=== PATIENT | female | born 1950 | race Caucasian/White ===

== ENCOUNTER → 2016-08-04 | Outpatient (CLI) | payer BC ==
--- NOTE | 2016-08-05 09:45 | MM ---
Reason for exam: screening (asymptomatic). Last mammogram was performed 1 year ago. History: Patient is postmenopausal. Benign excisional biopsy of the left breast. Took estrogen for 3 years 4 months. Took progesterone for 3 years 4 months. Physical Findings: A clinical breast exam by your physician is recommended on an annual basis and results should be correlated with mammographic findings. MG Screening Mammo w CAD Bilateral CC and MLO view(s) were taken. Prior study comparison: July 30, 2015, bilateral MG screening mammo w CAD. July 23, 2014, bilateral MG screening mammo w CAD. The breast tissue is almost entirely fat. No significant changes when compared with prior studies. ASSESSMENT: Benign, BI-RAD 2 RECOMMENDATION: Routine screening mammogram of both breasts in 1 year.
== END | disposition home or self-care (01) ==
LOC: RADMAMWWP 13:01
PROVIDERS: ATTEND Obstetrics & Gynecology
DX: Z12.31 Encounter for screening mammogram for malignant neoplasm of breast (principal)

== ENCOUNTER → 2017-08-11 | Outpatient (CLI) | payer MEDICARE, BC ==
--- NOTE | 2017-08-12 13:28 | MM ---
Reason for exam: screening (asymptomatic). Last mammogram was performed 1 year ago. History: Patient is postmenopausal. Benign excisional biopsy of the left breast. Took estrogen for 3 years 4 months. Took progesterone for 3 years 4 months. Physical Findings: A clinical breast exam by your physician is recommended on an annual basis and results should be correlated with mammographic findings. MG 3D Screening Mammo W/Cad Bilateral CC and MLO view(s) were taken. Prior study comparison: August 04, 2016, bilateral MG screening mammo w CAD. July 30, 2015, bilateral MG screening mammo w CAD. The breast tissue is heterogeneously dense. This may lower the sensitivity of mammography. There is chronic nodularity bilaterally. No suspicious abnormality. Post biopsy change on the left breast. No significant changes when compared with prior studies. ASSESSMENT: Benign, BI-RAD 2 RECOMMENDATION: Routine screening mammogram of both breasts in 1 year.
== END | disposition home or self-care (01) ==
LOC: RADMAMWWP 16:41
PROVIDERS: ATTEND Obstetrics & Gynecology
DX: Z12.31 Encounter for screening mammogram for malignant neoplasm of breast (principal)
CPT/HCPCS: 77063; 77067

== ENCOUNTER → 2018-08-25 | Outpatient (CLI) | payer MEDICARE, BC ==
--- NOTE | 2018-08-26 12:07 | MM ---
Reason for exam: screening (asymptomatic). Last mammogram was performed 1 year ago. History: Patient is postmenopausal. Benign excisional biopsy of the left breast. Took estrogen for 3 years 4 months. Took progesterone for 3 years 4 months. Physical Findings: A clinical breast exam by your physician is recommended on an annual basis and results should be correlated with mammographic findings. MG 3D Screening Mammo W/Cad Bilateral CC and MLO view(s) were taken. Prior study comparison: August 11, 2017, bilateral MG 3d screening mammo w/cad. August 04, 2016, bilateral MG screening mammo w CAD. The breast tissue is heterogeneously dense. This may lower the sensitivity of mammography. Benign appearing bilateral calcifications. No suspicious abnormality. No significant changes when compared with prior studies. ASSESSMENT: Benign, BI-RAD 2 RECOMMENDATION: Routine screening mammogram of both breasts in 1 year.
== END | disposition home or self-care (01) ==
LOC: RADMAMWWP 07:29
PROVIDERS: ATTEND Obstetrics & Gynecology
DX: Z12.31 Encounter for screening mammogram for malignant neoplasm of breast (principal)
CPT/HCPCS: 77063; 77067

== ENCOUNTER 2019-04-28 19:17 | Observation (INO) | payer MEDICARE, BC ==
[2019-04-28] MEDS ORDERED: SODIUM CHLORIDE 0.9% 1,000 ML IV STA (19:45)
[2019-04-28] MEDS ORDERED: ASPIRIN 81 MG PO STA (19:45)
--- NOTE | 2019-04-28 19:52 | ED ---
General Adult HPI - General Chief complaint: Recheck/Abnormal Lab/Rx Stated complaint: High Blood Pressure Time Seen by Provider: 04/28/19 19:31 Source: patient, RN notes reviewed Mode of arrival: ambulatory Limitations: no limitations - History of Present Illness Initial comments: This is a 69-year-old female history type 2 diabetes and hypertension states her blood pressure is been somewhat labile over last 5 days with his high as 180s over 84 down to 140 150/70 she states also she's been having intermittent episodes of retrosternal chest pain low grade she states maybe 1 or 2/10 severity she's been having intermittent episodes of this. Is nonradiating no fevers chills nausea vomiting sweats shortness of breath no exertional dyspnea with it. No prior history of heart disease she is a nonsmoker. No family history of heart disease she states. She does state that she fell the last week or 2 and had a bruise on her left anterior shay she wasn't sure if that had anything do with it. - Related Data Allergies Allergy/AdvReac Type Severity Reaction Status Date / Time amoxicillin [From Augmentin] Allergy Unknown Verified 04/28/19 19:26 clavulanic acid Allergy Unknown Verified 04/28/19 19:26 [From Augmentin] erythromycin base Allergy Unknown Verified 04/28/19 19:26 fexofenadine [From Gerri] Allergy Unknown Verified 04/28/19 19:26 oxaprozin [From Daypro] Allergy Unknown Verified 04/28/19 19:26 Childhood Review of Systems ROS Statement: Those systems with pertinent positive or pertinent negative responses have been documented in the HPI. ROS Other: All systems not noted in ROS Statement are negative. Past Medical History Past Medical History: Diabetes Mellitus, Hypertension History of Any Multi-Drug Resistant Organisms: None Reported Past Surgical History: Appendectomy, Hysterectomy Additional Past Surgical History / Comment(s): splenectomy Past Psychological History: No Psychological Hx Reported Smoking Status: Never smoker Past Alcohol Use History: Occasional Past Drug Use History: None Reported General Exam - General Exam Comments Initial Comments: This is a well-developed well-nourished awake alert oriented 3 female Limitations: no limitations General appearance: alert, anxious Head exam: Present: atraumatic, normocephalic, normal inspection Eye exam: Present: normal appearance, PERRL, EOMI. Absent: scleral icterus, conjunctival injection, periorbital swelling ENT exam: Present: normal exam, mucous membranes moist Neck exam: Present: normal inspection, full ROM, other (No stridor JVD or bruits). Absent: tenderness, meningismus, lymphadenopathy Respiratory exam: Present: normal lung sounds bilaterally. Absent: respiratory distress, wheezes, rales, rhonchi, stridor, chest wall tenderness Cardiovascular Exam: Present: regular rate, normal rhythm, normal heart sounds. Absent: systolic murmur, diastolic murmur, rubs, gallop, clicks GI/Abdominal exam: Present: soft, normal bowel sounds. Absent: distended, tenderness, guarding, rebound, rigid Extremities exam: Present: normal inspection, full ROM, normal capillary refill. Absent: tenderness, pedal edema, joint swelling, calf tenderness Back exam: Present: normal inspection Neurological exam: Present: alert, oriented X3, CN II-XII intact Psychiatric exam: Present: normal affect, normal mood Skin exam: Present: warm, dry, intact, normal color. Absent: rash Course Vital Signs 04/28/19 04/28/19 04/28/19 19:20 19:35 19:42 Temperature 97.9 F 97.8 F Pulse Rate 91 90 Pulse Rate [ 90 Outside Cutter ] Respiratory 16 16 Rate Blood Pressure 203/92 195/97 O2 Sat by Pulse 97 97 Oximetry 04/28/19 04/28/19 04/28/19 19:43 20:24 21:00 Temperature Pulse Rate 81 80 Pulse Rate [ Outside Cutter ] Respiratory 19 18 17 Rate Blood Pressure 176/89 168/85 O2 Sat by Pulse 98 97 Oximetry - Reevaluation(s) Reevaluation #1: 04/28/19 21:29 Patient states she's been having intermittent episodes of retrosternal chest pain again. EKG Findings - EKG Results: EKG: interpreted by ERMD, sinus rhythm (Sinus rhythm of 85. Interval 180 QRS duration 94 QT since QTC 34/456 possible left atrial enlargement nonspecific anterior changes) Medical Decision Making - Medical Decision Making I did discuss Pfizer the patient and her . Patient does have a recurrent chest pain for the initial workup appears be within normal limits. The concern is for angina patient is diabetic. Patient is 69 years old. Patient has agreed to stay for evaluation. Patient be admitted the case is discussed with Dr. Storey. Dr. Guy will be consulted. - Lab Data Result diagrams: 04/28/19 19:52 04/28/19 19:52 Lab Results 04/28/19 04/28/19 04/28/19 Range/Units 19:52 19:52 19:52 WBC 12.7 H (3.8-10.6) k/uL RBC 5.43 H (3.80-5.40) m/uL Hgb 15.3 (11.4-16.0) gm/dL Hct 47.0 H (34.0-46.0) % MCV 86.4 (80.0-100.0) fL MCH 28.1 (25.0-35.0) pg MCHC 32.5 (31.0-37.0) g/dL RDW 13.4 (11.5-15.5) % Plt Count 458 H (150-450) k/uL Neutrophils % 64 % Lymphocytes % 24 % Monocytes % 6 % Eosinophils % 1 % Basophils % 2 % Neutrophils # 8.1 H (1.3-7.7) k/uL Lymphocytes # 3.1 (1.0-4.8) k/uL Monocytes # 0.7 (0-1.0) k/uL Eosinophils # 0.1 (0-0.7) k/uL Basophils # 0.3 H (0-0.2) k/uL PT 9.6 (9.0-12.0) sec INR 0.9 (<1.2) APTT 22.9 (22.0-30.0) sec D-Dimer 0.36 (<0.60) mg/L FEU Sodium 138 (137-145) mmol/L Potassium 4.2 (3.5-5.1) mmol/L Chloride 102 (98-107) mmol/L Carbon Dioxide 29 (22-30) mmol/L Anion Gap 7 mmol/L BUN 16 (7-17) mg/dL Creatinine 0.66 (0.52-1.04) mg/dL Est GFR (CKD-EPI)AfAm >90 (>60 ml/min/1.73 sqM) Est GFR (CKD-EPI)NonAf >90 (>60 ml/min/1.73 sqM) Glucose 119 H (74-99) mg/dL Calcium 10.2 (8.4-10.2) mg/dL Magnesium 2.2 (1.6-2.3) mg/dL Total Bilirubin 0.6 (0.2-1.3) mg/dL AST 19 (14-36) U/L ALT 13 (4-34) U/L Alkaline Phosphatase 106 (38-126) U/L Creatine Kinase 48 (30-135) U/L Troponin I (0.000-0.034) ng/mL Total Protein 7.5 (6.3-8.2) g/dL Albumin 4.4 (3.5-5.0) g/dL Lipase 104 (23-300) U/L 04/28/19 Range/Units 19:52 WBC (3.8-10.6) k/uL RBC (3.80-5.40) m/uL Hgb (11.4-16.0) gm/dL Hct (34.0-46.0) % MCV (80.0-100.0) fL MCH (25.0-35.0) pg MCHC (31.0-37.0) g/dL RDW (11.5-15.5) % Plt Count (150-450) k/uL Neutrophils % % Lymphocytes % % Monocytes % % Eosinophils % % Basophils % % Neutrophils # (1.3-7.7) k/uL Lymphocytes # (1.0-4.8) k/uL Monocytes # (0-1.0) k/uL Eosinophils # (0-0.7) k/uL Basophils # (0-0.2) k/uL PT (9.0-12.0) sec INR (<1.2) APTT (22.0-30.0) sec D-Dimer (<0.60) mg/L FEU Sodium (137-145) mmol/L Potassium (3.5-5.1) mmol/L Chloride (98-107) mmol/L Carbon Dioxide (22-30) mmol/L Anion Gap mmol/L BUN (7-17) mg/dL Creatinine (0.52-1.04) mg/dL Est GFR (CKD-EPI)AfAm (>60 ml/min/1.73 sqM) Est GFR (CKD-EPI)NonAf (>60 ml/min/1.73 sqM) Glucose (74-99) mg/dL Calcium (8.4-10.2) mg/dL Magnesium (1.6-2.3) mg/dL Total Bilirubin (0.2-1.3) mg/dL AST (14-36) U/L ALT (4-34) U/L Alkaline Phosphatase (38-126) U/L Creatine Kinase (30-135) U/L Troponin I <0.012 (0.000-0.034) ng/mL Total Protein (6.3-8.2) g/dL Albumin (3.5-5.0) g/dL Lipase (23-300) U/L - Radiology Data Radiology results: report reviewed (I did review the imaging and report no acute findings.), image reviewed Disposition Clinical Impression: Chest pain, Unstable angina, Labile hypertension Disposition: ADMITTED IP TO THIS [facility] Condition: Fair Referrals: Bo Mast MD [Primary Care Provider] - 1-2 days
[2019-04-28 20:17] LABS: Basophils # (A) 0.3 k/uL (0-0.2); Basophils % (A) 2 %; Eosinophils # (A) 0.1 k/uL (0-0.7); Eosinophils % (A) 1 %; HGB 15.3 gm/dL (11.4-16.0); Lymphocytes # (A) 3.1 k/uL (1.0-4.8); Lymphocytes % (A) 24 %; MCH 28.1 pg (25.0-35.0); MCHC 32.5 g/dL (31.0-37.0); MCV 86.4 fL (80.0-100.0); Mean Platelet Volume 7.4; Monocytes # (A) 0.7 k/uL (0-1.0); Monocytes % (A) 6 %; Neutrophils # (A) 8.1 k/uL (1.3-7.7); Neutrophils % (A) 64 %; Platelet Count 458 k/uL (150-450); RBC 5.43 m/uL (3.80-5.40); RDW 13.4 % (11.5-15.5); WBC 12.7 k/uL (3.8-10.6)
[2019-04-28 20:27] LABS: ALT 13 U/L (4-34); AST 19 U/L (14-36); African American GFR (CKD) >90 (>60 ml/min/1.73 sqM); Albumin 4.4 g/dL (3.5-5.0); Alkaline Phosphatase 106 U/L (38-126); Anion Gap 7 mmol/L; Blood Urea Nitrogen 16 mg/dL (7-17); Calcium 10.2 mg/dL (8.4-10.2); Carbon Dioxide 29 mmol/L (22-30); Chloride 102 mmol/L (98-107); Creatine Kinase 48 U/L (30-135); Glucose 119 mg/dL (74-99); Magnesium 2.2 mg/dL (1.6-2.3); Non-African American GFR(CKD) >90 (>60 ml/min/1.73 sqM); Potassium 4.2 mmol/L (3.5-5.1); Sodium 138 mmol/L (137-145); Total Bilirubin 0.6 mg/dL (0.2-1.3); Total Protein 7.5 g/dL (6.3-8.2)
[2019-04-28 20:29] LABS: D-Dimer 0.36 mg/L FEU (<0.60); INR 0.9 (<1.2); Partial Thromboplastin Time 22.9 sec (22.0-30.0); Prothrombin Time 9.6 sec (9.0-12.0)
--- NOTE | 2019-04-28 20:36 | XR ---
EXAMINATION TYPE: XR chest 2V DATE OF EXAM: 04/28/2019 COMPARISON: NONE HISTORY: High blood pressure TECHNIQUE: 2 views FINDINGS: Heart and mediastinum are normal. Lungs are clear. Diaphragm is normal. Bony thorax is inta ct IMPRESSION: Normal chest.
[2019-04-28] MEDS ORDERED: NITROGLYCERIN SL TABS 0.4 MG TAB SUBLINGUAL PRN (21:31)
[2019-04-28] MEDS ORDERED: HEPARIN SODIUM,PORCINE 5,000 UNIT/ML 1 ML VIAL IV ONE (21:31)
[2019-04-28] MEDS ORDERED: SODIUM CHLORIDE 0.9% 1,000 ML IV SCH (21:45)
[2019-04-28] MEDS ORDERED: HEPARIN SOD,PORK IN 0.45% NACL 25,000 UNIT in 0.45% NACL 1 250ML.BAG IV SCH (21:45)
[2019-04-28] MEDS: BRIMONIDINE TARTRATE 0.2% DROPS 5 ML BTL BOTH EYES SCH (22:55)
[2019-04-28] MEDS: NITROGLYCERIN OINT 1 INCH/GM PACKET TOPICAL SCH (23:25)
[2019-04-29 05:53] LABS: Cholesterol 218 mg/dL (<200); HDL Cholesterol 41 mg/dL (40-60); LDL Cholesterol,Calculated 146 mg/dL (0-99); Triglycerides 157 mg/dL (<150)
[2019-04-29] MEDS ORDERED: HEPARIN SODIUM,PORCINE 5,000 UNIT/ML 1 ML VIAL IV STA (05:59)
[2019-04-29] MEDS: NITROGLYCERIN OINT 1 INCH/GM PACKET TOPICAL SCH ×3 (06:16→13:35)
[2019-04-29] MEDS: HEPARIN SODIUM,PORCINE 5,000 UNIT/ML 1 ML VIAL SQ SCH ×2 (08:01→20:37)
[2019-04-29] MEDS: INSULIN ASPART (NovoLOG) 100 UNIT/ML VIAL SQ SCH ×4 (08:01→21:03)
[2019-04-29] MEDS: GLIMEPIRIDE 2 MG TAB PO SCH (08:01)
[2019-04-29] MEDS: metFORMIN 500 MG TAB PO SCH ×2 (08:01→21:04)
[2019-04-29] MEDS ORDERED: NITROGLYCERIN SL TABS 0.4 MG TAB SUBLINGUAL PRN (08:03)
[2019-04-29] MEDS ORDERED: SODIUM CHLORIDE 0.9% 1,000 ML in EMPTY BAG 1 BAG IV ONE (08:03)
[2019-04-29] MEDS ORDERED: ASPIRIN 325 MG TAB PO STA (08:03)
[2019-04-29] MEDS ORDERED: ALPRAZolam 0.5 MG TAB PO PRN (08:03)
[2019-04-29] MEDS ORDERED: ALPRAZolam 0.25 MG TAB PO PRN (08:03)
[2019-04-29] MEDS ORDERED: ATORVASTATIN 80 MG TAB PO STA (08:03)
--- NOTE | 2019-04-29 08:09 | CONS ---
CONSULTATION Kathe Chakraborty is a 69-year-old lady who has retired and used to work on some small [employer] type activity but she is a retired person, went for a vacation to [place] recently and came back and after she came back, she was a little bit under stress and she felt that her blood pressure was elevated over 160-170 or so. She felt concerned and she started experiencing a pressure across the chest which she describes as an uncomfortable feeling that just would not go away. This was associated with some diaphoresis on one occasion but no nausea or palpitations or shortness of breath. She felt this on and off and came into the hospital. Her troponins are normal. EKG is unremarkable. She is resting comfortably without symptoms at the time of my evaluation. The patient is not a smoker. She is a reasonably active person. PAST MEDICAL HISTORY: 1. Type 2 diabetes. 2. Hypertension. 3. No documented evidence of hyperlipidemia, has not been on statins. She has not had any stress test. PAST SURGICAL HISTORY: She is status post appendectomy and hysterectomy. She also had some splenectomy performed and a partial pancreas taken out because of a spot and this was done at [facility]. Details are unclear. ALLERGIES: She is allergic to DAYPRO, PENICILLIN, ERYTHROMYCIN, and FRIDA. MEDICATIONS: At home include, glimepiride 2 mg before meals. She also takes metformin 750 mg b.i.d., losartan/HCTZ 100/25 one tablet daily. PHYSICAL EXAMINATION: On examination, blood pressure is 140/70, pulse rate is 72 per minute regular. HEENT: Unremarkable. Fundus was not examined by me. NECK: Supple. There is no JVD. I do not hear a carotid bruit. HEART: Reveals S1, S2 heard normally. No radius. No rub, murmur or gallop. LUNGS: Clear. ABDOMEN: Soft, nontender. LOWER EXTREMITIES: Reveal normal pulses. No edema. CENTRAL NERVOUS SYSTEM: Normal. EKG reveals sinus mechanism. No acute changes. IMPRESSION: 1. Chest pain syndrome in a patient with significant risk factor, cannot exclude unstable angina. 2. Hypertension. 3. Hyperlipidemia, not treated. 4. Type 2 diabetes mellitus. RECOMMENDATIONS: I am recommending that we discontinue IV heparin, put her on subcu heparin. The patient is a Bahai, does not wish to take any blood products. Given her symptoms of uncomfortable feeling in the chest with diaphoresis, I am recommending coronary angiography that will be performed later on today. I will initiate her on a beta neftali, aspirin, and Lipitor and proceed with cardiac cath. Risks, benefits, alternatives, options, rationale were explained. The patient understands all details and wishes to proceed with the procedure. Thank you very much for the consult. GUSTAVOL / IJN: [id number] /
[2019-04-29] MEDS: LOSARTAN-HCTZ 50-12.5 MG 1 EACH TAB PO SCH (08:11)
[2019-04-29] MEDS: METOPROLOL TARTRATE 25 MG TAB PO SCH ×2 (08:11→20:37)
[2019-04-29] MEDS ORDERED: ASPIRIN 81 MG PO SCH (09:00)
[2019-04-29] MEDS ORDERED: ATORVASTATIN 20 MG TAB PO SCH (09:00)
[2019-04-29] MEDS ORDERED: ASPIRIN 325 MG TAB PO SCH (09:00)
[2019-04-29 10:10] LABS: Glucose,Whole Blood 141 mg/dL (75-99)
[2019-04-29] MEDS ORDERED: IV FLUID CONTINUATION 1,000 ML IV ONE (12:10)
[2019-04-29] MEDS ORDERED: VERAPAMIL 2.5 MG/ML 2 ML AMP ONE (12:15)
[2019-04-29] MEDS ORDERED: HEPARIN SODIUM 1,000 UN/ML (10ML VL) ONE (12:15)
[2019-04-29] MEDS ORDERED: LIDOCAINE 1% INJ 10MG/ML (20 ML MDV) ONE (12:16)
[2019-04-29] MEDS: MIDAZOLAM 2 MG/2 ML VIAL IVP ONE ×2 (13:00→13:07)
[2019-04-29] MEDS ORDERED: NITROGLYCERIN SL TABS 0.4 MG TAB SUBLINGUAL ONE ×3 (13:04→13:07)
[2019-04-29] MEDS ORDERED: LIDOCAINE 1%-EPI 1:100,000 20 ML VIAL SQ ONE ×2 (13:05→13:06)
[2019-04-29] MEDS ORDERED: VERAPAMIL SYRINGE (5 MG/10 ML) INTRAARTER ONE (13:06)
[2019-04-29] MEDS: VERAPAMIL SYRINGE (5 MG/10 ML) INTRAARTER ONE ×2 (13:08→13:26)
[2019-04-29] MEDS ORDERED: HEPARIN SODIUM 1,000 UN/ML (10ML VL) IV ONE (13:09)
[2019-04-29] MEDS ORDERED: IOPAMIDOL-370 100ML BTL INJ ONE (13:26)
--- NOTE | 2019-04-29 14:48 | ECHOF ---
Referral Reason:chest pain MEASUREMENTS -------- HEIGHT: 162.6 cm WEIGHT: 103.0 kg BP: RVIDd: 2.8 cm (< 3.3) IVSd: 1.2 cm (0.6 - 1.1) LVIDd: 4.5 cm (3.9 - 5.3) LVPWd: 1.0 cm (0.6 - 1.1) IVSs: 1.6 cm LVIDs: 2.9 cm LVPWs: 1.3 cm LA Diam: 3.4 cm (2.7 - 3.8) LAESV Index (A-L): 21.55 ml/m Ao Diam: 2.6 cm (2.0 - 3.7) AV Cusp: 1.5 cm (1.5 - 2.6) LA Diam: 4.3 cm (2.7 - 3.8) MV EXCURSION: 20.130 mm (> 18.000) MV EF SLOPE: 68 mm/s (70 - 150) EPSS: 0.4 cm MV E Antione: 0.81 m/s MV DecT: 211 ms MV A Antione: 0.86 m/s MV E/A Ratio: 0.94 RAP: 5.00 mmHg RVSP: 14.81 mmHg FINDINGS -------- Sinus rhythm. This was a technically adequate study. The left ventricular size is normal. There is mild concentric left ventricular hypertrophy. Overa ll left ventricular systolic function is normal with, an EF between 55 - 60 %. The diastolic fillin g pattern is normal for the age of the patient 11.04. The right ventricle is normal in size. The left atrial size is normal. The right atrial size is normal. There is mild aortic valve sclerosis. There is no evidence of aortic regurgitation. Mild mitral annular calcification present. Mild mitral regurgitation is present. Mild tricuspid regurgitation present. Right ventricular systolic pressure is normal at < 35 mmHg. There is no evidence of pulmonary hypertension. There is no pulmonic regurgitation present. The aortic root size is normal. Echo free space represents a pericardial fat pad. CONCLUSIONS -------- 1. Sinus rhythm. 2. This was a technically adequate study. 3. The left ventricular size is normal. 4. There is mild concentric left ventricular hypertrophy. 5. Overall left ventricular systolic function is normal with, an EF between 55 - 60 %. 6. The diastolic filling pattern is normal for the age of the patient 11.04 7. The right ventricle is normal in size. 8. The left atrial size is normal. 9. The right atrial size is normal. 10. There is mild aortic valve sclerosis. 11. Mild mitral annular calcification present. 12. Mild mitral regurgitation is present. 13. Mild tricuspid regurgitation present. 14. Right ventricular systolic pressure is normal at < 35 mmHg. 15. There is no evidence of pulmonary hypertension. 16. There is no pulmonic regurgitation present. 17. The aortic root size is normal. 18. Echo free space represents a pericardial fat pad. BATTER MIXER: Andreea Fajardo RDCS
[2019-04-29 16:34] LABS: Glucose,Whole Blood 159 mg/dL (75-99)
[2019-04-29 19:47] LABS: Glucose,Whole Blood 102 mg/dL (75-99)
[2019-04-29] MEDS: BRIMONIDINE TARTRATE 0.2% DROPS 5 ML BTL BOTH EYES SCH (20:37)
--- NOTE | 2019-04-29 22:37 | HP ---
HISTORY AND PHYSICAL CHIEF COMPLAINT: Chest pain. HISTORY OF PRESENT ILLNESS: This is the first known admission for this 69-year-old white female who has a history of hypertension. She has been having some vague anterior chest discomfort for the last few days. She has had no other related symptoms such as shortness of breath, sweatiness, nausea, radiation of the pain, etc. She does have a history of diabetes mellitus and hypertension. She also has elevated cholesterol and she has glaucoma. Enzymes and EKG are unremarkable. She has been seen by Cardiology and because of her diabetes and history of hypertension, she is going for cardiac cath. REVIEW OF SYSTEMS: She has had no CVAs, neurologic deficits, change in vision or hearing, chest pain, cough, hemoptysis, sputum production, murmurs, rheumatic fever, orthopnea, PND, abdominal pain, indigestion, nausea, vomiting, hematemesis, melena, hematochezia, colitis, diverticulosis, diverticulitis, hemorrhoids, jaundice, hepatitis, cirrhosis, hematuria, frequency, urgency, renal failure, incontinence, etc. Past medical history, family history and personal and social histories reveal that she is on metformin, glipizide, losartan, and drops for her glaucoma. She is ALLERGIC TO MACROLIDES, FRIDA, PENICILLIN AND DAYPRO. Surgically she has had an appendectomy and a hysterectomy and removal of the tail of her pancreas and spleen. She does not know her status with regard to Pneumovax. She does not smoke and she does not drink. PHYSICAL EXAMINATION: Blood pressure is 168/92 with a pulse of 83, respirations of 19, and she is afebrile. In general, she appeared to be slightly overweight and in no acute distress. Lymph nodes not enlarged. Head, ears, eyes, nose, mouth, and throat were normal. Neck veins not distended. Thyroid is not enlarged. Chest is clear. Cardiac exam is normal. Abdomen is soft and nontender. Extremities are normal. Neurologically she is intact. IMPRESSION: She is admitted to the hospital with diagnoses: 1. Atypical chest pain. 2. Hypertension. 3. Type 2 NIDDM. 4. Status post splenectomy. PLAN: 1. Bed rest. 2. IV fluids. 3. Serial EKGs and enzymes. 4. Cardiology consult and she is going for a cardiac cath. MMODL / IJN: [id number] /
[2019-04-29 23:26] VITALS: TEMP 98
--- NOTE | 2019-04-29 23:55 | CC ---
CARDIAC CATHETERIZATION REPORT DATE OF SERVICE: 04/29/2019 PROCEDURE: Left heart catheterization and coronary angiography. PERFORMED BY: Dr. Steve Guy. SEDATION: Moderate conscious sedation time was 22 minutes. PROCEDURE PERFORMED: Left heart catheterization and coronary angiography. CLINICAL INFORMATION: Mrs. Kathe Chakraborty is a lady with type 2 diabetes mellitus, who came into the hospital with chest discomfort, continued to have persistent discomfort, nondescript. Troponin was not elevated. She has hypertension also and hyperlipidemia but is not on a statin agent. In view of her symptomatology and risk factors, after due discussion, I recommended coronary angiography, explained to her the rationale, risks, benefits, and options. PROCEDURE NOTE: Under local anesthesia and strict aseptic precautions, a 6-Senegalese introducer was placed in the right radial artery. I used a JL3.5 and JR4.0 catheter to perform coronary angiography and I also used a pigtail catheter to check LV pressures. LV gram was not performed. 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 CARDIAC CATHETERIZATION FINDINGS: The left ventricular end-diastolic pressure was about 5 mmHg without any gradient across aortic valve. CORONARY ANGIOGRAPHY FINDINGS: RIGHT CORONARY ARTERY: Right coronary artery is a very dominant vessel. The ostium and proximal portion have about a 40% narrowing. There is mild damping when I engage the catheter but on manipulating the catheter, the damping resolved. There is about a 35% to 40% ostial disease after which the caliber improves. Moderate calcification distally bifurcates into a large PDA and small PLV. No other areas of significant disease. The dominant RCA therefore has an ostial 40% lesion. Multiple angiograms were obtained in various projections to identify this. No other significant disease noted. Moderate calcification noted. LEFT MAIN CORONARY ARTERY: Short patent disease-free vessel that bifurcates into LAD and circumflex. LEFT ANTERIOR DESCENDING CORONARY ARTERY: Good caliber vessel, extends along the anterior wall and gives off smaller septal and diagonal branches. In the midportion, it gives off a good-sized diagonal branch that has a disease of about 40% in the midportion, fair caliber and distribution, divides into 3 branches distally. The diagonal at its origin has mild irregularities. Midportion 50% lesion, divides into 3 branches. LEFT ANTERIOR DESCENDING CORONARY ARTERY: LAD that continues after the diagonal has a 40% to 45% narrowing and then the caliber improves. The vessel runs all the way towards the apex, curves over the apex to supply the inferoapical portion of left ventricle as well. LAD therefore has a 45% mid lesion. Diagonal has a 50% lesion after the origin and there is mild to moderate calcification in the LAD system. LEFT POSTERIOR CIRCUMFLEX CORONARY ARTERY: Good caliber vessel, nondominant, gives off a single large obtuse marginal that runs laterally, has minor irregularities. No significant disease. Left ventriculogram was not performed. Following the procedure, a TR band was applied and the saturation of the right hand fingers was about 95%. Patient tolerated procedure well without complications. Results were discussed with the patient and family. Continued medical therapy with risk factor modification was advised. IMPRESSION: 1. Normal filling pressures. If any low filling pressures, no gradient across aortic valve. Right dominant system, 40% RCA ostial disease, 40% to 45% mid LAD disease, 50% disease in the midportion of a major diagonal branch. Circumflex is free of significant disease. RECOMMENDATIONS: I am recommending continued medical therapy with risk factor modification and I will start her on beta blockers and statins. Continue the losartan and her diabetic medications. She can be discharged tomorrow if she remains stable. Findings and recommendations discussed with the patient and family. MMODL / IJN: [id number] /
--- NOTE | 2019-04-30 01:04 | PN ---
PROGRESS NOTE CHIEF COMPLAINT: Chest pain and hypertension. HISTORY OF PRESENT ILLNESS: This lady is doing well and she has not had any further chest pain. Blood pressure has been fluctuating, however, she has been seen by Cardiology and because of her diabetes and chest pain she is going for cardiac cath. PHYSICAL EXAMINATION: Chest is clear. Cardiac exam is normal. Abdomen is soft, nontender. Extremities are normal. IMPRESSION: 1. Atypical chest pain. 2. Diabetes. 3. Hypertension. PLAN: Cardiac cath today. MMODL / IJN: [id number] /
[2019-04-30 06:31] LABS: Glucose,Whole Blood 150 mg/dL (75-99)
[2019-04-30 07:42] VITALS: BP 156/77; PULSE 81; RESP 18
[2019-04-30] MEDS: metFORMIN 500 MG TAB PO SCH (08:26)
[2019-04-30] MEDS: LOSARTAN-HCTZ 50-12.5 MG 1 EACH TAB PO SCH (08:26)
[2019-04-30] MEDS: GLIMEPIRIDE 2 MG TAB PO SCH (08:26)
[2019-04-30] MEDS: METOPROLOL TARTRATE 25 MG TAB PO SCH (08:28)
[2019-04-30] MEDS: BRIMONIDINE TARTRATE 0.2% DROPS 5 ML BTL BOTH EYES SCH (08:29)
[2019-04-30] MEDS: HEPARIN SODIUM,PORCINE 5,000 UNIT/ML 1 ML VIAL SQ SCH (08:29)
[2019-04-30] MEDS: INSULIN ASPART (NovoLOG) 100 UNIT/ML VIAL SQ SCH (08:30)
--- NOTE | 2019-04-30 08:53 | PN ---
PROGRESS NOTE Mrs. Herring had a cardiac cath by right radial approach yesterday, revealed moderate ostial RCA disease and also LAD 40% and diagonal disease. Advised medical therapy. Added statin agent and also beta blockers. He is doing well this morning. Right radial cath site is clean and dry. Vital signs stable. No JVD. S1, S2 heard normally. Lungs are clear. Abdomen and lower extremity exam looks exam unchanged. Plan is to increase activity, discharge him and I will see her in the office in one week. MMODL / IJN: [id number] /
[2019-04-30] MEDS ORDERED: ASPIRIN 81 MG PO SCH (09:00)
[2019-04-30] MEDS ORDERED: ATORVASTATIN 40 MG TAB PO SCH (21:00)
--- NOTE | 2019-05-01 05:21 | DS ---
DISCHARGE SUMMARY CHIEF COMPLAINT: Chest pain. HISTORY OF PRESENT ILLNESS AND PHYSICAL EXAM: Details of this lady's history and physical can physical can be found in the initial workup. LABORATORY STUDIES: While she was in a hospital she had laboratory studies, details of which can be found in the laboratory section of her chart. COURSE IN HOSPITAL: After admission, she was placed on bedrest, started on intravenous fluids and had serial EKGs and enzymes. Troponins were normal. He was seen by Cardiology and because of her history of diabetes and hypertension, she was taken to lab courier. Cardiac cath was normal. She is doing well on the day of discharge and it was felt she could go home on the . She will go home on her usual activity, diet and medication and will either follow up with her own physician or us. Her blood pressure was still high when she left, and it was recommended that she be placed on additional medication if it does not go down. FINAL DIAGNOSES: 1. Chest pain, noncardiac. 2. Essential hypertension. 3. Type 2 [id number] diabetes mellitus. 4. Glaucoma. OPERATIONS: None. CONSULTATIONS: Cardiology. She is improved. MMODL / IJN: [id number] /
== END 2019-04-30 10:11 | disposition home or self-care (01) ==
LOC: EC 19:17 → 1SOBS 21:31
PROVIDERS: ADMIT Family Medicine; ATTEND Family Medicine
DX: R07.89 Other chest pain (principal); I25.10 Atherosclerotic heart disease of native coronary artery without angina pectoris; I10 Essential (primary) hypertension; E11.9 Type 2 diabetes mellitus without complications; E78.5 Hyperlipidemia, unspecified; E78.00 Pure hypercholesterolemia, unspecified; H40.9 Unspecified glaucoma; Z91.81 History of falling; Z73.3 Stress, not elsewhere classified; Z90.49 Acquired absence of other specified parts of digestive tract; Z90.710 Acquired absence of both cervix and uterus; Z90.81 Acquired absence of spleen; Z90.411 Acquired partial absence of pancreas; Z79.84 Long term (current) use of oral hypoglycemic drugs; Z79.899 Other long term (current) drug therapy; Z88.0 Allergy status to penicillin; Z88.1 Allergy status to other antibiotic agents; Z88.6 Allergy status to analgesic agent; Z88.8 Allergy status to other drugs, medicaments and biological substances
CPT/HCPCS: 93458; 93005 ×2; 96366 ×2; 96376 ×2; 96361; 96365; 99284; 36415; 93306; 85379; 80061; 80053; 82550; 83690; 83735; 84484 ×2; 85025; 85610; 85730 ×2; 71046; G0378 ×3; C1769; C1894; J2250; J1644 ×4; Q9967

== ENCOUNTER → 2019-11-06 | Outpatient (CLI) | payer MEDICARE, BC ==
--- NOTE | 2019-11-07 10:16 | MM ---
Reason for exam: screening (asymptomatic). Last mammogram was performed 1 year and 2 months ago. History: Patient is postmenopausal. Benign excisional biopsy of the left breast. Took estrogen for 3 years 4 months. Took progesterone for 3 years 4 months. Physical Findings: A clinical breast exam by your physician is recommended on an annual basis and results should be correlated with mammographic findings. MG 3D Screening Mammo W/Cad Bilateral CC and MLO view(s) were taken. Prior study comparison: August 25, 2018, bilateral MG 3d screening mammo w/cad. August 11, 2017, bilateral MG 3d screening mammo w/cad. The breast tissue is heterogeneously dense. This may lower the sensitivity of mammography. Stable benign calcifications. There is no discrete abnormality. No significant changes when compared with prior studies. ASSESSMENT: Benign, BI-RAD 2 RECOMMENDATION: Routine screening mammogram of both breasts in 1 year.
== END | disposition home or self-care (01) ==
LOC: RADMAMWWP 06:55
PROVIDERS: ATTEND Obstetrics & Gynecology
DX: Z12.31 Encounter for screening mammogram for malignant neoplasm of breast (principal)
CPT/HCPCS: 77063; 77067

== ENCOUNTER → 2020-11-07 | Outpatient (CLI) | payer MEDICARE, BC ==
--- NOTE | 2020-11-11 11:38 | MM ---
Reason for exam: screening (asymptomatic). Last mammogram was performed 1 year ago. History: Patient is postmenopausal. Benign excisional biopsy of the left breast. Took estrogen for 3 years 4 months. Took progesterone for 3 years 4 months. Physical Findings: A clinical breast exam by your physician is recommended on an annual basis and results should be correlated with mammographic findings. MG 3D Screening Mammo W/Cad Bilateral CC and MLO view(s) were taken. Prior study comparison: November 06, 2019, bilateral MG 3d screening mammo w/cad. August 25, 2018, bilateral MG 3d screening mammo w/cad. August 11, 2017, bilateral MG 3d screening mammo w/cad. There are scattered fibroglandular densities. Stable benign oil cyst and secretory calcifications. No significant changes when compared with prior studies. ASSESSMENT: Negative, BI-RAD 1 RECOMMENDATION: Routine screening mammogram of both breasts in 1 year.
== END | disposition home or self-care (01) ==
LOC: RADMAMWWP 06:57
PROVIDERS: ATTEND Obstetrics & Gynecology
DX: Z12.31 Encounter for screening mammogram for malignant neoplasm of breast (principal)
CPT/HCPCS: 77063; 77067

== ENCOUNTER → 2021-11-10 | Outpatient (CLI) | payer MEDICARE ==
--- NOTE | 2021-11-10 09:49 | MM ---
Reason for Exam: Screening (asymptomatic). Last screening mammogram was performed 12 month(s) ago. Patient History: Menarche at age 14. First Full-Term at age 21. Left ovary removed at age 54. Right ovary removed at age 54. Hysterectomy at age 54. Postmenopausal. Currently using Estrogen, starting at age 60. Progesterone for 3 years, 4 months, until age 60. Benign Excisional Biopsy on the left side. Risk Values: Eloina 5 year model risk: 1.5%. NCI Lifetime model risk: 4.5%. Prior Study Comparison: 08/04/2016 Bilateral Screening Mammogram, [facility]. 08/11/2017 Bilateral Screening Mammogram, [facility] 08/25/2018 Bilateral Screening Mammogram, [facility]. 11/06/2019 Bilateral Screening Mammogram, [facility]. 11/07/2020 Bilateral Screening Mammogram, [facility]. Tissue Density: There are scattered fibroglandular densities. Findings: Analyzed By CAD. There is no suspicious group of microcalcifications or new suspicious mass in either breast. Overall Assessment: Negative, BI-RAD 1 Management: Screening Mammogram of both breasts in 1 year. A clinical breast exam by your physician is recommended on an annual basis and results should be correlated with mammographic findings. Electronically signed and approved by: Burke Gonzalez DO
== END | disposition home or self-care (01) ==
LOC: RADMAMWWP 06:50
PROVIDERS: ATTEND Obstetrics & Gynecology
DX: Z12.31 Encounter for screening mammogram for malignant neoplasm of breast (principal)
CPT/HCPCS: 77063; 77067

== ENCOUNTER → 2022-11-23 | Outpatient (CLI) | payer MEDICARE ==
--- NOTE | 2022-11-24 09:46 | MM ---
Reason for Exam: Screening (asymptomatic). Last mammogram was performed 1 year(s) and 1 month(s) ago. Patient History: Menarche at age 14. First Full-Term at age 21. Left ovary removed at age 54. Right ovary removed at age 54. Hysterectomy at age 54. Postmenopausal. Currently using Estrogen, starting at age 60. Progesterone for 3 years, 4 months, until age 60. Benign Excisional Biopsy on the left side. Risk Values: Eloina 5 year model risk: 1.5%. NCI Lifetime model risk: 4.3%. Prior Study Comparison: 08/04/2016 Bilateral Screening Mammogram, [facility]. 08/11/2017 Bilateral Screening Mammogram, [facility]. 08/25/2018 Bilateral Screening Mammogram, [facility]. 11/06/2019 Bilateral Screening Mammogram, [facility]. 11/07/2020 Bilateral Screening Mammogram, [facility]. 11/10/2021 Bilateral MG 3D screening mammo w/cad, [facility]. Tissue Density: There are scattered fibroglandular densities. Findings: Analyzed By CAD. There is no suspicious group of microcalcifications or new suspicious mass in either breast. Overall Assessment: Negative, BI-RAD 1 Management: Screening Mammogram of both breasts in 1 year. . Patient should continue monthly self-breast exams. A clinical breast exam by your physician is recommended on an annual basis. This exam should not preclude additional follow-up of suspicious palpable abnormalities. Note on Eloina scores and lifetime risk: 1. A Eloina score greater than 3% is considered moderate risk. If this is the case, consider specialist referral to assess eligibility for a risk reducing agent. 2. If overall lifetime risk for the development of breast cancer is 20% or higher, the patient may qualify for future screening with alternating mammogram and breast MRI. Electronically signed and approved by: Alfredo Buchanan M.D. Radiologis
== END | disposition home or self-care (01) ==
LOC: RADMAMWWP 07:42
PROVIDERS: ATTEND Obstetrics & Gynecology
DX: Z12.31 Encounter for screening mammogram for malignant neoplasm of breast (principal); Z78.0 Asymptomatic menopausal state
CPT/HCPCS: 77063; 77067

== ENCOUNTER → 2023-11-29 | Outpatient (CLI) | payer MEDICARE ==
--- NOTE | 2023-12-02 11:04 | MM ---
Reason for Exam: Screening (asymptomatic). Last screening mammogram was performed 12 month(s) ago. Patient History: Menarche at age 14. First Full-Term at age 21. Left ovary removed at age 54. Right ovary removed at age 54. Hysterectomy at age 54. Postmenopausal. Currently using Estrogen, starting at age 60. Progesterone for 3 years, 4 months, until age 60. Benign Excisional Biopsy on the left side. Risk Values: Eloina 5 year model risk: 1.5%. NCI Lifetime model risk: 4.1%. Prior Study Comparison: 11/07/2020 Bilateral Screening Mammogram, [facility]. 11/10/2021 Bilateral MG 3D screening mammo w/cad, [facility]. 11/23/2022 Bilateral MG 3D screening mammo w/cad, [facility]. Tissue Density: There are scattered areas of fibroglandular density. Findings: Analyzed By CAD. Right breast: There is no suspicious group of microcalcifications or new suspicious mass. Benign-appearing calcifications right breast. Left breast: There is no suspicious group of microcalcifications or new suspicious mass. Benign-appearing calcifications left breast. Overall Assessment: Benign, BI-RAD 2 Management: Screening Mammogram of both breasts in [address] [facility] will attempt to contact patient to return for supplemental views and ultrasound if indicated. Patient should continue monthly self-breast exams. A clinical breast exam by your physician is recommended on an annual basis. This exam should not preclude additional follow-up of suspicious palpable abnormalities. Note on Eloina scores and lifetime risk: 1. A Eloina score greater than 3% is considered moderate risk. If this is the case, consider specialist referral to assess eligibility for a risk reducing agent. 2. If overall lifetime risk for the development of breast cancer is 20% or higher, the patient may qualify for future screening with alternating mammogram and breast MRI. [facility], , 12/02/2023 11:01 AM. Electronically signed and approved by: Burke Gonzalez DO
== END | disposition home or self-care (01) ==
LOC: RADMAMWWP 07:11
PROVIDERS: ATTEND Obstetrics & Gynecology
DX: Z12.31 Encounter for screening mammogram for malignant neoplasm of breast
CPT/HCPCS: 77063; 77067